=== PATIENT | male | born 2000 | race Caucasian/White ===

== ENCOUNTER 2020-02-16 18:38 | Emergency (ER) | payer MEDICAID ==
[~2020-02-16] VITALS: Ht 175.3 cm; Wt 81.6 kg
[2020-02-16 18:38] VITALS: BP_SYST 125
--- NOTE | 2020-02-16 18:38 | NUR ---
BROUGHT IN BY [facility], TRIAGED, VSS, PT TAKEN TO WAITING ROOM. NO AVAILABLE ER BEDS AT THIS TIME.
[2020-02-16] MEDS ORDERED: NACL 0.9% 1,000 ML IV ONE (19:24)
[2020-02-16] MEDS ORDERED: KETOROLAC TROMETHAMINE 30 MG VIAL IVP ONE (19:30)
[2020-02-16 20:02] LABS: BASOPHILS % (AUTO) 0.2 % (0.0-2.0); EOSINOPHILS % (AUTO) 0.4 % (0.0-4.0); HEMATOCRIT 46.1 % (36-54); HEMOGLOBIN 15.1 g/dL (14.0-18.0); LYMPHOCYTES # (AUTO) 0.9 K/uL (1.0-5.5); LYMPHOCYTES % (AUTO) 7.7 % (20.5-51.5); MEAN CORPUSCULAR HEMOGLOBIN 30 pg (27-31); MEAN CORPUSCULAR HGB CONC 33 % (32-36); MEAN CORPUSCULAR VOLUME 93 fL (79.0-98.0); MONOCYTES # (AUTO) 0.6 K/uL (0.0-1.0); MONOCYTES % (AUTO) 5.1 % (1.7-9.3); NEUTROPHILS # (AUTO) 10.5 K/uL (1.8-7.7); NEUTROPHILS % (AUTO) 86.6 % (40.0-70.0); PLATELET COUNT (AUTO) 185 K/uL (130-430); RED BLOOD CELL COUNT(AUTO) 4.98 MIL/uL (4.2-6.2); RED CELL DISTRIBUTION WIDTH 12.9 % (9.0-15.0); WHITE BLOOD COUNT (AUTO) 12.1 K/uL (4.5-11.0)
[2020-02-16 20:09] LABS: CALCIUM 8.5 mg/dL (8.4-11.0); CREATININE 1.06 mg/dL (0.55-1.30); POTASSIUM 3.5 mmol/L (3.5-5.1)
[2020-02-16 20:14] LABS: ALBUMIN 4.3 g/dL (3.4-4.8); TOTAL BILIRUBIN 0.7 mg/dL (0.0-1.0)
--- NOTE | 2020-02-16 20:32 | NUR ---
ER Dr. ORDONEZ at bedside examining patient.
--- NOTE | 2020-02-16 20:32 | NUR ---
Patient to ER chair to gown for evaluation. Side rails up. Report given to Brii LOVE.
--- NOTE | 2020-02-16 20:33 | NUR ---
PT A&O X4 C/O OF LEFT SIDED FLANK PAIN 04/01 STARTED AROUND 5PM. PT HX OF KIDNEY STONES. NO OTHER MEDICAL COMPLAINTS AT THIS TIME. WILL CONTINUE TO MONITOR.
--- NOTE | 2020-02-16 20:37 | NUR ---
PT UNABLE TO URINATE AT THIS TIME. AWARE.
--- NOTE | 2020-02-16 20:40 | NUR ---
PT ABLE TO GIVE SMALL AMOUNT OF URINE, SENT TO LAB.
--- NOTE | 2020-02-16 20:45 | NUR ---
# 22 gauge angiocath placed to LAC. Use of asceptic technique. Opsite placed over site. Blood return noted. Flushed with 10 cc of normal saline. No evidence of infiltration noted. Patient tolerated well.
[2020-02-16 21:06] LABS: BLOOD, URINE 3+ (NEGATIVE); CLARITY/URINE CLEAR (CLEAR); COLOR,URINE YELLOW (YELLOW); GLUCOSE,URINE NEGATIVE (NEGATIVE); KETONES,URINE 3+ (NEGATIVE); LEUKOCYTE ESTERASE ,URINE NEGATIVE (NEGATIVE); NITRITE, URINE NEGATIVE (NEGATIVE); PROTEIN URINE TRACE (NEGATIVE)
[2020-02-16 21:23] LABS: BILIRUBIN,URINE NEGATIVE (NEGATIVE)
[2020-02-16 21:26] LABS: BACTERIA,URINE FEW /HPF (None Seen); MUCUS,URINE 1+ /LPF (None Seen); RBC,URINE 50-80 /HPF (0-3); WBC,URINE 0-3 /HPF (0-3)
--- NOTE | 2020-02-16 21:32 | NUR ---
PT PAIN 09/01. MD AWARE. NS FLUIDS ALMOST FINISHED.
[2020-02-16 21:45] VITALS: BP_SYST 122
--- NOTE | 2020-02-16 21:45 | NUR ---
Patient given written and verbal discharge instructions and verbalizes understanding. ER MD discussed with patient the results and treatment provided. Patient in stable condition. ID arm band removed. IV catheter removed intact and dressing applied, no active bleeding. Rx of NAPROSYN given. Patient educated on pain management and to follow up with PMD. Pain Scale 1/10. Opportunity for questions provided and answered. Medication side effect fact sheet provided.
== END 2020-02-16 21:45 | disposition home or self-care (01) ==
LOC: SED 18:38
DX: N20.0 Calculus of kidney (principal); R11.2 Nausea with vomiting, unspecified
CPT/HCPCS: 36415; 74176; 80053; 81000; 85025; 96361; 96374; 99284; J1885; J7030